=== PATIENT | male | born 1935 | race Caucasian/White ===

== ENCOUNTER → 2017-04-22 | Outpatient (CLI) | payer OTHER ==
[~2017-04-22] MED LIST: ACET-1325; ASPCH81X PO; ATOR-26 PO; CALCTAB5 PO; CARB25TA PO; CIPR0.3S4 OPL; CIPR1SUS5 OPR; CMD/25 PO; DIFL0.0519 OPL; FINA5TAB PO; FURO-85 PO; KRIL1000 PO; MULT-190 PO; NTRGSL/4 UT; PRED1SUS3 OPR; TAMS0.4C38 PO; WARF5TAB90 PO
[2017-04-22 18:24] LABS: BLOOD UREA NITROGEN 27 mg/dl (7-18); CARBON DIOXIDE 29 mmol/L (21-32); CREATININE 0.85 mg/dl (0.60-1.40); GLUCOSE 95 mg/dl (70-99); POTASSIUM 4.1 mmol/L (3.5-5.1); SODIUM 140 mmol/L (136-145)
== END | disposition home or self-care (01) ==
LOC: C.LABMFLN 16:45
PROVIDERS: ATTEND Family Medicine
DX: R06.02 Shortness of breath (principal); R31.9 Hematuria, unspecified